=== PATIENT | male | born 1965 | race Caucasian/White ===

== ENCOUNTER 2017-10-18 10:42 | Emergency (ER) | payer OTHER ==
[~2017-10-18] VITALS: Ht 182.9 cm; Wt 111.0 kg
[2017-10-18 10:43] VITALS: BP 162/93
== END 2017-10-18 12:04 | disposition home or self-care (01) ==
LOC: ED 11:58
DX: Z20.6 Contact with and (suspected) exposure to human immunodeficiency virus [HIV] (principal)
CPT/HCPCS: 36415; 86703; 86705; 86706; 86803; 87340; 87899; 99284; G0435